=== PATIENT | male | born 1925 | race Caucasian/White ===

== ENCOUNTER → 2016-02-17 | Outpatient (CLI) | payer OTHER, BC ==
[~2016-02-17] MED LIST: ACET-1256 PO; ALBINS/ INH; AMLO10TA4 PO; ARTISOL8 OPB; ASPI81TA28 PO; DFL100 PO; FLUO0.05 TOP; GABA-112 PO; GANC0.15 OPR; INSDGI SQ; LEVO75TA5 PO; MISCCAP80 PO; MULTTAB66 PO; NSNN50 NAE; NVLGI SC; NYSS5 PO; POLYSOL4 OPR; PRAV10TA39 PO; PRED-301 PO; PRLSR20 PO; SERT50TA PO; SKINOIL9 OT; STARPOW19 PO; SYMIN INH; TIOTCAP INH
[2016-02-17 16:15] LABS: URINE APPEARANCE CLOUDY (CLEAR); URINE BILIRUBIN NEG (NEG); URINE COLOR YELLOW; URINE NITRITE NEG (NEG); URINE SPECIFIC GRAVITY 1.013 (1.000-1.030); UROBILINOGEN NEG (NEG)
[2016-02-17 16:34] LABS: MANUAL MICROSCOPIC REQUIRED? NO; REVIEW REQ? YES
== END | disposition home or self-care (01) ==
LOC: C.LABSPEC 12:40
PROVIDERS: ATTEND Internal Medicine
DX: N39.0 Urinary tract infection, site not specified (principal)